=== PATIENT | female | born 1995 | race Hispanic/Latino ===

== ENCOUNTER 2019-04-17 11:53 | Emergency (ER) | payer OTHER, SELFPAY ==
[2019-04-17] MEDS ORDERED: Ketorolac Tromethamine 30 MG/ML VIAL ONE (12:33)
--- NOTE | 2019-04-17 12:51 | RAD ---
Exam: Chest one view HISTORY:Trauma. Chest pain Comparison: None FINDINGS: Cardiac silhouette: Normal Aorta: Unremarkable Pulmonary vessels: Normal Costophrenic angles: Clear LUNGS: No masses or consolidation. Pneumothorax: None Osseous abnormalities: None IMPRESSION: No acute cardiopulmonary process.
== END 2019-04-17 13:25 | disposition home or self-care (01) ==
LOC: ERS 11:53
DX: S20.219A Contusion of unspecified front wall of thorax, initial encounter (principal); V53.5XXA Driver of pick-up truck or van injured in collision with car, pick-up truck or van in traffic accident, initial encounter
CPT/HCPCS: 71045; 96374; J1885

== ENCOUNTER 2019-04-19 10:34 | Emergency (ER) | payer SELFPAY ==
[2019-04-19] MEDS ORDERED: Ketorolac Tromethamine 30 MG/ML VIAL ONE (11:15)
== END 2019-04-19 11:45 | disposition home or self-care (01) ==
LOC: ERS 10:34
DX: R07.89 Other chest pain (principal); V89.2XXA Person injured in unspecified motor-vehicle accident, traffic, initial encounter
CPT/HCPCS: J1885

== ENCOUNTER 2020-04-02 11:43 | Inpatient (IN) | payer OTHER ==
[2020-04-02] MEDS ORDERED: hydrALAZINE 20 MG/ML VIAL SLOW IVP PRN (12:39)
[2020-04-02] MEDS ORDERED: Lactated Ringer's 1,000 ML IV SCH ×2 (12:45→14:15)
[2020-04-02 12:56] LABS: Amnisure Test No Membranes Rupture (No Rupture)
[2020-04-02 12:57] LABS: Amnisure Internal Control QC ACCEPTABLE (ACCEPTABLE)
[2020-04-02 13:00] VITALS: BMI 29.9
[2020-04-02] MEDS ORDERED: NS / Oxytocin 40 units/1000ml 1,000 ML IV PRN (14:08)
[2020-04-02] MEDS ORDERED: Ondansetron PF 4 MG/2 ML Vial IVP PRN (14:08)
[2020-04-02] MEDS ORDERED: Promethazine HCl 25 MG/ML VIAL IM PRN (14:08)
[2020-04-02] MEDS ORDERED: Docusate 100 MG CAP PO PRN (14:08)
[2020-04-02] MEDS ORDERED: Lidocaine 1% (PF) 30 ML VIAL SC PRN (14:08)
[2020-04-02] MEDS ORDERED: NS w/ Oxytocin 10 units 500 ML IV SCH (14:15)
--- NOTE | 2020-04-02 14:21 | PDOC.FPROB ---
FMR OB H&P: HPI - History of Present Illness Chief Complaint: Oligohydraminos Indentification: 24 y/o at 38.1 wga History of Present Illness: Pt presents to OB triage today after having OB u/s done for assessment of heart chambers as all four chambers were hard to visualize on previous u/s. Incidental finding was that CATRACHO was 4 and patient was sent over to the hospital. Pt stated that she is feeling well. Endorses movement and states that she has been feeling very little contractions over the past week. She denied VB, VD, LOF, recent sexual activity. Denied dysuria, polyuria, hematuria along with PUGA/vision changes, CP/SOB, and N/V/D. Primary Care Physician: Matthias FMR OB H&P: Current - Care : 6 Para: 4 Gestational age: 38.1 Due date: 04/15/20 - OB Labs Blood type: B RH: positive Antibody Screen: negative HIV: negative RPR: negative HepBsAg: negative Rubella: immune Gonorrhea: negative Chlamydia: negative 1 hour gtt: 102 3 hour GTT: 76 GBS: unknown Platelets: 183 on 02/20/20 FMR OB H&P: History - Past Medical History PMH: -none - OB History OB History: -4 previous in 2008, 2010, 2012, 2016 -1 D&C at 8 weeks in 2007 - EDGE BASTER History EDGE BASTER History: none - Surgical History Sx History: -none - Social History Social History: no tobacco, drug use, etoh use - Family History Family History: -non-contributory FMR OB H&P: Medications - Current Home Medications: Medication Instructions Recorded Confirmed Type Vit,Calc76/Iron/Folic 1 tablet PO DAILY 08/19/15 04/02/20 History [Prenatabs Rx Tablet] Allergies/Adverse Reactions: Allergies Allergy/AdvReac Type Severity Reaction Status Date / Time No Known Allergies Allergy Verified 04/02/20 16:29 FMR OB H&P: ROS - Review of Systems General: denies: fever/chills Eyes: denies: vision changes ENT: denies: nasal congestion, rhinorrhea Cardiovascular: denies: chest pain, palpitation, edema, claudication Respiratory: denies: cough, congestion, shortness of breath Gastrointestinal: denies: abdominal pain, indigestion, bloating, cramping, diarrhea, constipation Genitourinary (Female): denies: incontinence, dysuria, hematuria, polyuria, hesitancy, vaginal discharge, vaginal pain, vaginal bleeding, contractions, vaginal pressure Musculoskeletal: denies: pain, stiffness FMR OB H&P: Vital Signs - Maternal Vital signs: BP: 103/63 HR 68, RR 18 - Heart Tones Baseline: 145 Variability: moderate Deceleration: absent Category: category 1 FMR OB H&P: Physical Exam - Physical Exam General: NAD, awake, alert and oriented HEENT: normocephalic and atraumatic, PERRLA Neck: supple Heart: RRR, normal S1/S2, no murmurs/rubs/gallops, pulses present, no edema General: CTAB, no respiratory distress, good air movement, no rales/rhonchi, no wheezing, no retractions Abdomen: gravid Musculoskeletal: FROM in all four extremities Neurological: no focal deficit Skin: no rash, good tugor, capillary refill <2 seconds Psychiatric: intact recent and remote memory, good judgement and insight, normal mood and affect - Pelvic Exam Vulva: normal hair distribution, no masses, no lesions, no discharge, no blood, normal rugae SVE: /-1 FMR OB H&P: Results - Labs Lab results: Laboratory Results - last 24 hr 04/02/20 12:35 Amnio Swab Test No Membranes Rupture FMR OB H&P: A/P Disposition: 24 y/o at 38.1 wga presents after being sent to hospital for concerning sono findings of low CATRACHO. ##sIUP term -38.1 wga RAMON 04/15/20 -FHT: moderate variability, some accels seen, no decels seen, FHR 140s-150s, no toco ctx seen at this time. -maternal labs negative -maternal VSS -GBS negative -sono done on 04/02 at [facility] showed CATRACHO of 3.89 -SVE @ 13:31 was /-1 -BPP done here showed CATRACHO of 2.9cm (this was ordered before final report from [facility] was seen) ##hx of SAB x1 s/p D&C -aware ##hx of GBS carrier in 2016 -aware ##umbilical hernia -aware Plan: admit for IOL due to oligohydraminos. maternal VSS. will order to start pitocin. will recheck @ 6:30 PM. H&P was discussed with Dr. Briseno who agreed with assessment and plan. Addendum - Attending - Attending Attestation Date/Time: 04/02/201920 I personally evaluated the patient and discussed the management with Dr. Hein. I agree with the History, Examination, Assessment and Plan documented above.
[2020-04-02] MEDS ORDERED: NS w/ Oxytocin 10 units 500 ML ONE (14:46)
--- NOTE | 2020-04-02 14:56 | ULT ---
ULTRASOUND WITH BIOPHYSICAL PROFILE: 04/02/20 HISTORY: Oligohydramnios on outpatient ultrasound. FINDINGS: A single viable intrauterine gestation is seen with heart rate of 135 beats per minute. The [facility] is located to the maternal right. Vertex position is seen. The CATRACHO measures 2.9 cm. BIOPHYSICAL PROFILE: tone: 2 breathin movement: 2 Amniotic fluid: 2 IMPRESSION: 1. Ultrasound with biophysical profile score is 8 out of 8. 2. Oligohydramnios . POS: AH
[2020-04-02] MEDS ORDERED: Diphenoxylate HCl/Atropine Tablet PO PRN (15:08)
[2020-04-02] MEDS ORDERED: Misoprostol 200 MCG TAB PR PRN (15:08)
[2020-04-02] MEDS ORDERED: Ibuprofen 800 MG TAB PO PRN (15:08)
[2020-04-02] MEDS ORDERED: Carboprost 250 MCG/ML AMP IM PRN (15:08)
[2020-04-02] MEDS ORDERED: Methylergonovine 0.2 MG/ML VIAL IM PRN (15:08)
[2020-04-02 15:54] LABS: Mean Corpuscular HGB CONC 35.4 g/dL (32.0-36.0); Mean Corpuscular Hemoglobin 34.5 pg (27.0-31.0); Mean Corpuscular Volume 97.3 fL (78.0-98.0); Platelet Count 152 thou/uL (130-400); RBC Distribution Width 11.8 % (11.5-14.5); Red Blood Cell (RBC) Count 3.76 mill/uL (4.20-5.40); White Blood Cell (WBC) Count 8.7 thou/uL (4.8-10.8)
[2020-04-02 16:23] LABS: HBSAg Index 0.16 S/CO (0-0.99); Hep B Surf Ag Non-Reactive S/CO (NonReactive)
[2020-04-02 16:23] LABS: Syphilis Antibody Nonreactive (Nonreactive); Syphilis Antibody Index 0.02 S/CO (<1.00 Non-Reactive)
--- NOTE | 2020-04-02 18:37 | PDOC.LDPN ---
Labor & Delivery Progress Note - Subjective Subjective: comfortable - Objective Vital signs reviewed and normal: yes General: NAD Uterine fundus: non tender Dilation: 3 Effacement: 75% Station: 2+ FHT: category 1 (accels present, no decels, FHT 130 baseline), variability present [place] contractions every: 3 min Plan: continue plan of care -: 24 y/o at 38.1 wga admitted for IOL due to oligohydraminos. ##sIUP term 38.1 wga RAMON 04/15/20. Maternal labs negative -Maternal VSS -GBS negative -sono done on 04/02 at [facility] showed CATRACHO of 3.89 -BPP done here showed CATRACHO of 2.9cm (this was ordered before final report from [facility] was seen) 1330 2/-1, cat 1 strip 1620 pitocin started 1830 /-2, cat 1 strip, @ 8 pit ##hx of SAB x1 s/p D&C -aware ##hx of GBS carrier in 2016 -aware ##umbilical hernia -aware Plan: Continue plan of care. Next cervical check at 2230 Addendum - Attending - Attending Attestation Date/Time: 04/02/201950 I personally evaluated the patient and discussed the management with Dr. Nielson. I agree with the Assessment and Plan documented above.
[2020-04-02] MEDS: Butorphanol Tartrate 1 MG/ML VIAL SLOW IVP PRN ×2 (20:33→23:07)
--- NOTE | 2020-04-02 22:37 | PDOC.LDPN ---
Labor & Delivery Progress Note - Subjective Subjective: comfortable - Objective Vital signs reviewed and normal: yes General: NAD Uterine fundus: non tender Dilation: 4 Effacement: 75% Station: 2+ FHT: category 1 (accels present, no decels, FHT 120 baseline), variability present [place] contractions every: 3-4 min Plan: continue plan of care -: 24 y/o at 38.1 wga admitted for IOL due to oligohydraminos. ##sIUP term 38.1 wga RAMON 04/15/20. Maternal labs negative -Maternal VSS -GBS negative -sono done on 04/02 at [facility] showed CATRACHO of 3.89 -BPP done here showed CATRACHO of 2.9cm (this was ordered before final report from [facility] was seen) 1330 2/70/-1, cat 1 strip 1620 pitocin started 1830 3/75/-2, cat 1 strip, @ 8 pit 2030 4/75/-2, cat 1 strip, @ 10 pit ##hx of SAB x1 s/p D&C -aware ##hx of GBS carrier in 2016 -aware ##umbilical hernia -aware Plan: Continue plan of care. Next cervical check at 0000. Addendum - Attending - Attending Attestation Date/Time: 04/02/20 3443 I personally evaluated the patient and discussed the management with Dr. Nielson. I agree with the History, Examination, Assessment and Plan documented above.
--- NOTE | 2020-04-03 00:39 | PDOC.LDPN ---
Labor & Delivery Progress Note - Subjective Subjective: comfortable - Objective Vital signs reviewed and normal: yes General: NAD Uterine fundus: non tender Dilation: 5 Effacement: 90% Station: 2+ FHT: category 1 (accels present, no decels, FHT 120 baseline), variability present [place] contractions every: 2-3 min Plan: continue plan of care -: 24 y/o at 38.1 wga admitted for IOL due to oligohydraminos. ##sIUP term 38.1 wga RAMON 04/15/20. Maternal labs negative -Maternal VSS -GBS negative -sono done on 04/02 at [facility] showed CATRACHO of 3.89 -BPP done here showed CATRACHO of 2.9cm (this was ordered before final report from [facility] was seen) 1330 2/70/-1, cat 1 strip 1620 pitocin started 1830 3/75/-2, cat 1 strip, @ 8 pit 2030 4/75/-2, cat 1 strip, @ 10 pit 2330 5/90/-2, cat 1 strip, @ 10 pit ##hx of SAB x1 s/p D&C -aware ##hx of GBS carrier in 2016 -aware ##umbilical hernia -aware Plan: Continue plan of care Addendum - Attending - Attending Attestation Date/Time: 04/03/20 9932 I personally evaluated the patient and discussed the management with Dr. Nielson. I agree with the History, Examination, Assessment and Plan documented above.
[2020-04-03] MEDS: Butorphanol Tartrate 1 MG/ML VIAL SLOW IVP PRN (01:29)
[2020-04-03] MEDS ORDERED: Fentanyl 4 mcg/Bup 0.1% Cadd 100 ML ONE (01:35)
[2020-04-03] MEDS ORDERED: EPHEDRINE 25 MG/5 ML SYRINGE SLOW IVP PRN (02:08)
[2020-04-03] MEDS ORDERED: Ondansetron PF 4 MG/2 ML Vial IVP PRN (02:08)
[2020-04-03] MEDS ORDERED: Acetaminophen 325 MG TAB PO PRN (02:08)
[2020-04-03] MEDS ORDERED: Promethazine HCl 25 MG/ML VIAL IM PRN (02:08)
[2020-04-03] MEDS ORDERED: Lactated Ringer's 500 ML IV PRN (02:08)
[2020-04-03] MEDS ORDERED: diphenhydrAMINE 50 MG/ML VIAL IVP PRN (02:08)
[2020-04-03] MEDS ORDERED: Naloxone HCl 0.4 mg/ml Vial IVP PRN ×2 (02:08)
[2020-04-03] MEDS ORDERED: Communication Order-Pharmacy FS SCH (02:15)
[2020-04-03] MEDS ORDERED: Fentanyl 4 mcg/Bupivacaine 0.1% Cassette 100 ML EPIDURAL SCH (02:15)
--- NOTE | 2020-04-03 03:12 | PDOC.LDPN ---
Labor & Delivery Progress Note - Subjective Subjective: comfortable - Objective Vital signs reviewed and normal: yes General: NAD Uterine fundus: non tender Dilation: 6 Effacement: 100% Station: -1 FHT: category 1 (FHT 130 baseline, accels present, no decels), variability present [place] contractions every: 3 min Other exam findings: Bloody show present AROM: clear fluid Plan: continue plan of care -: 24 y/o at 38.1 wga admitted for IOL due to oligohydraminos. ##sIUP term 38.1 wga RAMON 04/15/20. Maternal labs negative -Maternal VSS -GBS negative -sono done on 04/02 at [facility] showed CATRACHO of 3.89 -BPP done here showed CATRACHO of 2.9cm (this was ordered before final report from [facility] was seen) 1330 2/70/-1, cat 1 strip 1620 pitocin started 1830 3/75/-2, cat 1 strip, @ 8 pit 2030 4/75/-2, cat 1 strip, @ 10 pit 2330 5/90/-2, cat 1 strip, 0130 6/100/-1, cat 1 strip 0245 6/100/-1, AROM, cat 1 strip ##hx of SAB x1 s/p D&C -aware ##hx of GBS carrier in 2016 -aware ##umbilical hernia -aware Plan: Continue plan of care, next cervical check at 0445 Addendum - Attending - Attending Attestation Date/Time: 04/03/20 4448 I personally evaluated the patient and discussed the management with Dr. Nielson. I agree with the History, Examination, Assessment and Plan documented above.
[2020-04-03] MEDS ORDERED: NS / Oxytocin 40 units/1000ml 1,000 ML ONE (04:24)
[2020-04-03] MEDS ORDERED: Lidocaine 1% (PF) 30 ML VIAL ONE (04:24)
--- NOTE | 2020-04-03 05:58 | PDOC.OPDEL ---
OB Operative/Delivery Note - Additional Findings/Plan Compilations/Other Findings: Delivering Physician: Dr. Rolf Mesa Attending: Dr. Briseno Procedure: Spontaneous Vaginal Delivery Anesthesia: epidural QBL: 100 Pre-op Diagnosis: 1. Term intrauterine in labor 2. Oligohydramnios 3. Hx of SAB s/p D&C 4. Umbilical hernia Post-op Diagnosis: 1. Term intrauterine , delivered 2. same as above Indications: A 23 y/o female presents for mIOL due to oligohydramnios Delivery Note: This is 23 yo F @ 38.2 wks who delivered a viable F infant at 0445 on 04/03/20. Following an uneventful antepartum course, a vigorous female was delivered over an intact perineum in the occipitoanterior position. Anterior Shoulder and then remainder of the body delivered. No nuchal cord. The head was held down and mouth and nares were bulb suctioned. Cord clamped and cut and cord blood collected. Placenta delivered pugh intact with a 3 vessel cord noted. Fundal massage was performed and the fundus was firm. The cervix and vagina were inspected and found to be free of lacerations. went to nursery in good condition for routine care. Apgars were 8/9 at 1 & 5 minutes, respectively. Patient tolerated delivery well and went to after routine recovery/care.
[2020-04-03] MEDS ORDERED: Milk Of Magnesia 30 ML UDCUP PO PRN (08:12)
[2020-04-03] MEDS ORDERED: Lanolin Ointment 7 GM TUBE TOP PRN (08:12)
[2020-04-03] MEDS ORDERED: Bisacodyl 10 MG SUPP PR PRN (08:12)
[2020-04-03] MEDS ORDERED: NS / Oxytocin 40 units/1000ml 1,000 ML IV SCH (08:12)
[2020-04-03] MEDS ORDERED: hydrALAZINE 20 MG/ML VIAL SLOW IVP PRN (08:12)
[2020-04-03] MEDS: Prenatal Vitamin 1 TAB PO SCH (13:22)
[2020-04-03] MEDS: Docusate Calcium (SURFAK) 240 MG CAP PO SCH ×2 (13:23→21:33)
[2020-04-03] MEDS: Ibuprofen 800 MG TAB PO SCH ×2 (15:39→21:33)
[2020-04-03 15:59] LABS: SARS-CoV-2 MS2 Positive; SARS-CoV-2 N Gene Negative; SARS-CoV-2 S Gene Negative; SARS-CoV-2 by NAA Not Detected (NotDetected); SARS-CoV-2 orf1ab Negative
[2020-04-03] MEDS: Ferrous Sulfate 325 MG TAB PO SCH (16:29)
[2020-04-04] MEDS ORDERED: Zolpidem Tartrate 5 MG TAB PO PRN (00:34)
[2020-04-04] MEDS: Ibuprofen 800 MG TAB PO SCH (05:06)
[2020-04-04 05:25] VITALS: BP 103/61; TEMP 97.9
--- NOTE | 2020-04-04 07:55 | PDOC.PP ---
Post Progress Note Post Day #: 1 Subjective: Pain well controlled. Bottle feeding. Minimal lochia. Ambulating, tolerating diet, urinating. Would like to go home today. PO intake tolerated: yes Flatus: yes Ambulation: yes Vital Signs (12 hours) Temp Pulse Resp BP Pulse Ox 04/04/20 05:05 97.9 F 59 L 18 103/61 04/04/20 00:45 97.7 F 53 L 18 118/65 04/03/20 20:40 97.9 F 67 18 100/55 L 99 Weight Weight 69.4 kg - Physical Examination General: NAD Cardiovascular: no m/r/g, RRR Respiratory: clear to auscultation bilaterally, non-labored breathing Abdominal: + bowel sounds, lochia, appropriately TTP Fundus firm & at: below umbilicus Neurological: no gross focal deficits Psychiatric: A&Ox3, normal affect Result Diagrams: 04/02/20 15:38 Additional Labs: Post Labs Hep Bs Antigen Non-Reactive S/CO (NonReactive) 04/02/20 15:37 Blood Type B POSITIVE 04/02/20 17:02 - Assessment/Plan sIUP, delivered - PPD #1 - Meeting PP milestones - Contraception: Depo - F/u at [facility] in 2 weeks Dispo: Likely discharge home today
[2020-04-04] MEDS ORDERED: Adacel (T-DAP) 0.5 ML SYRINGE IM ONE (08:12)
[2020-04-04] MEDS: Docusate Calcium (SURFAK) 240 MG CAP PO SCH (08:21)
[2020-04-04] MEDS: Prenatal Vitamin 1 TAB PO SCH (08:21)
[2020-04-04] MEDS: Ferrous Sulfate 325 MG TAB PO SCH (09:25)
== END 2020-04-04 12:00 | disposition home or self-care (01) | DRG 807 ==
LOC: L&D/OP 11:43 → L&D 15:27 → 3SW 04-03 09:33
PROVIDERS: ADMIT Obstetrics & Gynecology; ATTEND Obstetrics & Gynecology
PROC: 10E0XZZ Delivery of Products of Conception, External Approach (ICD-10-PCS; principal; 2020-04-03)
PROC: 10907ZC Drainage of Amniotic Fluid, Therapeutic from Products of Conception, Via Natural or Artificial Opening (ICD-10-PCS; 2020-04-03)
PROC: 3E0P7VZ Introduction of Hormone into Female Reproductive, Via Natural or Artificial Opening (ICD-10-PCS; 2020-04-03)
PROC: 3E033VJ Introduction of Other Hormone into Peripheral Vein, Percutaneous Approach (ICD-10-PCS; 2020-04-03)
DX: O41.03X0 Oligohydramnios, third trimester, not applicable or unspecified (principal); Z37.0 Single live birth; Z20.828 Contact with and (suspected) exposure to other viral communicable diseases; O99.62 Diseases of the digestive system complicating childbirth; Z3A.38 38 weeks gestation of pregnancy; K44.9 Diaphragmatic hernia without obstruction or gangrene
CPT/HCPCS: 36415; 51702; 76819; 84112; 85027; 86780; 86850; 86900; 86901; 87340; 87635; J0595; J2590; U0003

== ENCOUNTER 2022-12-12 21:09 | Emergency (ER) | payer OTHER ==
[2022-12-12 21:43] LABS: Bacteria/HPF None Seen HPF (None Seen); Bilirubin Negative (Negative); Blood, Urine Trace (Negative); CAUTI Indications for Culture Fever or rigors; Clarity Clear (Clear); Glucose, Urine (Dipstick) Normal (Negative); Ketone, Urine Negative (Negative); Leukocyte Negative Leu/uL (Negative); Nitrite Negative (Negative); Protein, Urine (Dipstick) Negative (Neg-Trace); RBC/HPF 0-3 HPF (0-3); Specific Gravity, Urine 1.013 (1.002-1.036); Squamous Epithelial 0-3 HPF (0-3); Urobilinogen Normal mg/dL (Less than 2); WBC/HPF 0-3 HPF (0-3); pH, Urine 5.5 (5.0-9.0)
[2022-12-12 21:45] LABS: Urine Culture Reflex No No
== END 2022-12-12 23:28 | disposition home or self-care (01) ==
LOC: ERS 21:09
DX: B34.9 Viral infection, unspecified (principal)
CPT/HCPCS: 81001; 93005

== ENCOUNTER 2024-03-20 14:02 | Emergency (ER) | payer OTHER, SELFPAY ==
[2024-03-20] MEDS ORDERED: Ketorolac Tromethamine 30 MG (1 mL) VIAL ONE (15:35)
[2024-03-20] MEDS ORDERED: Acetaminophen 500 MG TAB ONE (15:35)
== END 2024-03-20 16:02 | disposition home or self-care (01) ==
LOC: ERS 14:02
DX: S39.012A Strain of muscle, fascia and tendon of lower back, initial encounter (principal); W01.10XA Fall on same level from slipping, tripping and stumbling with subsequent striking against unspecified object, initial encounter; Z75.8 Other problems related to medical facilities and other health care
CPT/HCPCS: 72100; 72220; 96372; 99283; J1885